=== PATIENT | female | born 1965 | race Caucasian/White ===

== ENCOUNTER 2019-12-20 09:29 | Inpatient (IN) | payer OTHER ==
[~2019-12-20] VITALS: Ht 165.1 cm; Wt 107.0 kg
[2019-12-20] VITALS (34 sets, daily range): BP systolic 80–137; BP diastolic 32–67
--- NOTE | 2019-12-20 09:37 | NUR ---
PATIENT GIVEN 20MG OF ETOMIDATE FROM RSI KIT IV PER VERBAL ORDER FOR INTUBATION OF PATIENT.
--- NOTE | 2019-12-20 09:39 | NUR ---
NURSE REPORT TO ROM ARRINGTON RN, FOR CONTINUATION OF CARE.
--- NOTE | 2019-12-20 09:40 | NUR ---
PT. INTUBATED WITH #7.O ET TUBE USING VIDEO LARYNOSCOPE. ET TUBE PLACEMENT WAS VERIFIED WITH ETCO2 DETECTOR WHICH CHANGED FROM PURPLE TO YELLOW IN COLOR, AUSCULTATION OF THE CHEST, PORTALBE CHEST X RAY, AND CONTINOUS ETCO2 MONITORING. SPO2 100% ON FIO2 OF 100%, HR 70 ETCO2 68. PT. PLACED ON VENTILATOR. VENTILATOR SETTINGS ARE AC 18 TV 500 FIO2 100% PEEP 0.
--- NOTE | 2019-12-20 09:40 | NUR ---
PATIENT INTUBATED WITH 7.0 ET TUBE THAT IS 25CM AT THE LIP. INTUBATED BY SUNG IN RESPIRATORY WITH DR LUX AT BEDSIDE. PATIENT TOLERATED WELL. BEING PLACED ONTO VENTILATOR.
--- NOTE | 2019-12-20 09:41 | NUR ---
VENTILATOR SETTINGS ARE SET AT INTIALLY: RATE 18/MIN TV 500 O2 100% NO PEEP.
--- NOTE | 2019-12-20 09:52 | NUR ---
PROPOFOL INTIATED AT 8MCG/KG PER VERBAL ORDER DR LUX.
[2019-12-20 09:58] LABS: BASO # 0.1 10*3/uL (0.0-0.1); BASO % 0.9 % (0.0-1.0); EOS # 0.7 10*3/uL (0.0-0.4); EOS % 4.2 % (1.0-4.0); HEMATOCRIT 34.1 % (37.0-47.0); LYMPH # 3.2 10*3/uL (1.3-4.4); LYMPH % 20.4 % (27.0-41.0); MEAN CELL VOLUME 97.7 fl (81.0-99.0); MEAN CORPUSCULAR HGB 29.8 pg (27.0-31.0); MEAN CORPUSCULAR HGB CONC 30.5 g/dl (33.0-37.0); MEAN PLATELET VOLUME 10.1 fl (9.6-12.3); MONO # 1.1 10*3/uL (0.1-1.0); NEUT # 10.4 10*3/uL (2.3-7.9); NEUT % 65.9 % (47.0-73.0); NUCLEATED RED BLOOD CELL 0.1 10*3/uL (0.0-0.0); NUCLEATED RED BLOOD CELL 0.6 % (0.0-0.0); PLATELET COUNT AUTOMATED 247 10*3/uL (130-400); RED BLOOD COUNT 3.49 10*6/uL (4.10-5.10); RED CELL DISTRI WIDTH 18.9 % (0-14.5); WHITE BLOOD COUNT 15.8 10*3/uL (4.8-10.8)
--- NOTE | 2019-12-20 10:00 | NUR ---
PROPOFOL HAS BEEN TITRATED TO 5 MCG/KG AT THIS TIME. DR LUX AWARE. BP IS WITHIN NORMAL LIMITS.
--- NOTE | 2019-12-20 10:05 | NUR ---
THIS NURSE ACCOMPANYING PATIENT TO CT SCAN AT THIS TIME. RESPIRATORY ALSO WITH THIS NURSE FOR INTUBATED PATIENT TO BAG.
[2019-12-20 10:11] LABS: BILIRUBIN NEGATIVE (NEGATIVE); BLOOD NEGATIVE (NEGATIVE); CLARITY SL CLOUDY (CLEAR); COLOR YELLOW (YELLOW); GLUCOSE NEGATIVE (NEGATIVE); KETONE NEGATIVE (NEGATIVE); LEUKO ESTERASE NEGATIVE (NEGATIVE); NITRITE NEGATIVE (NEGATIVE); SPECIFIC GRAVITY 1.015 (1.005-1.030); UROBILINOGEN 0.2 E.U./dl (0.2-1.0)
[2019-12-20 10:17] LABS: BACTERIA 3+; EPITHELIAL CELLS 0-2; MUCOUS TRACE
[2019-12-20 10:19] LABS: ALBUMIN 2.5 gm/dl (3.1-4.5); ALKALINE PHOSPHATASE 92 U/L (45-117); BUN 27 mg/dl (7-24); CHLORIDE 101 mmol/L (98-107); CREATININE 2.77 mg/dL (0.55-1.02); POTASSIUM 5.7 mmol/L (3.5-5.1); SGOT/AST 44 IU/L (3-35); SGPT/ALT 31 U/L (12-78); SODIUM 133 mmol/L (136-145); TOTAL PROTEIN 6.9 gm/dL (6.4-8.2); TROPONIN I < 0.015 ng/ml (<0.045)
[2019-12-20 10:38] LABS: ABG BASE EXCESS -4.8 mmol/L (-2.0-2.0); ARTERIAL BLOOD GAS PH 7.227 (7.35-7.45)
--- NOTE | 2019-12-20 10:49 | NUR ---
RESPIRATORY AT BEDSIDE. BLOOD GASES ARE RESULTED. 02 SAT ON VENTILATOR HAS BEEN DECREASED FROM 100% TO 50% BY RESPIRATORY. DR LUX NOTIFIED AND IS OK WITH THIS.
--- NOTE | 2019-12-20 11:33 | NUR ---
FIO2 WAS DECREASED TO 50% AFTER RESULTS OF ABG, AND RN AWARE.' ET TUBE PULLED BACK TO [address] LUX ORDERS. PT. TOLERATED WELL. RN AWARE.
[2019-12-20 13:02] LABS: CREATININE 2.61 mg/dL (0.55-1.02); POTASSIUM 4.8 mmol/L (3.5-5.1)
--- NOTE | 2019-12-20 13:45 | NUR ---
PATIENT TRANSPORTED TO CT SCAN BY THIS NURSE RESPIRATORY AND THERAPY DIRECTOR AT THIS TIME. ICCU HAS BEEN NOTIFIED AND PATIENT WILL GO DIRECTLY FROM CT SCAN TO THE ICCU. PATIENT TRANSPORTED FROM CT TO ICCU AND BEDSIDE REPORT GIVEN TO SHEMAR MEDEL RN AT BEDSIDE. PATIENT TOLERATED WELL.
--- NOTE | 2019-12-20 14:10 | NUR ---
A 54yr old female admitted to ICCU, under the services of BELLA Jordan DO with a diagnosis of Sepsis and Respiratory failure. Chief complaint is collapsed, unresponsive in family's arms at home, intubated upon arrival to ER. Patient arrived via stretcher from ER. Monitor applied. Initial assessment completed. Vital signs taken and recorded. See assessment for past medical history, medications and allergies. Patient and/or family oriented to unit. [facility] visitation policy reviewed. Clothing/patient valuable form completed. Patient is orally intubated, on ventilator, sedated on Propofol. OGT in place. Reese catheter in place. Soft restraints in place to prevent accidental self extubation. Patient does open her eyes spontaneously and movement of her right arm and both legs have been noted. NINI RICHARD L
--- NOTE | 2019-12-20 14:30 | NUR ---
DR SHAFFER HERE UPON PTS ARRIVAL AFTER REVIEWING CT-PT TO BE TRANSFERRED BACK TO CC DR CELINA CLAYTON
[2019-12-20] MEDS ORDERED: PRIMIDONE250 MG PO (15:08)
[2019-12-20] MEDS ORDERED: ALDACTONE25 MG PO (15:09)
[2019-12-20] MEDS ORDERED: SENNA8.6 MG PO (15:09)
[2019-12-20] MEDS ORDERED: VITAMIN D325 MCG PO (15:10)
[2019-12-20] MEDS ORDERED: AMITRIPTYLINE10 MG PO (15:11)
[2019-12-20] MEDS ORDERED: ASPIRIN CHEWABL81 MG PO (15:12)
[2019-12-20] MEDS ORDERED: AMLODIPINE BESY10 MG PO (15:12)
[2019-12-20] MEDS ORDERED: ATORVASTATIN CA80 M1 PO (15:13)
[2019-12-20] MEDS ORDERED: ESCITALOPRAM OX20 MG PO (15:17)
[2019-12-20] MEDS ORDERED: DICYCLOMINE HCL10 MG PO (15:17)
[2019-12-20] MEDS ORDERED: GABAPENTIN100 M2 PO (15:18)
[2019-12-20] MEDS ORDERED: NEURONTIN400 MG PO (15:21)
[2019-12-20] MEDS ORDERED: LOSARTAN POTAS100 M1 PO (15:21)
[2019-12-20] MEDS ORDERED: METOPROLOL SUC100 M2 PO (15:22)
[2019-12-20] MEDS ORDERED: MAGNESIUM OXID400 MG PO (15:22)
[2019-12-20] MEDS ORDERED: METFORMIN HYD1000 MG PO (15:23)
[2019-12-20] MEDS ORDERED: PROTONIX40 MG PO (15:24)
--- NOTE | 2019-12-20 15:30 | NUR ---
MEDICATIONS RECONCILED WITH LISTED/PACKAGED. PHARMACY DOSE PACK
--- NOTE | 2019-12-20 15:44 | NUR ---
DR CARROLL HERE AND NOTIFIED OF CONSULT
[2019-12-20 15:45] LABS: ABG BASE EXCESS -2.9 mmol/L (-2.0-2.0); ARTERIAL BLOOD GAS PH 7.334 (7.35-7.45)
--- NOTE | 2019-12-20 16:10 | NUR ---
ABG RESULTS CALLED TO DR. SHAFFER. NO NEW ORDERS GIVEN.
--- NOTE | 2019-12-20 16:58 | NUR ---
DR PATRICK NOTIFIED OF MAP 45 LEVAPHED STARTED AT 4M/30CC
--- NOTE | 2019-12-20 17:03 | NUR ---
FLUID BOLUS STARTED
--- NOTE | 2019-12-20 18:20 | NUR ---
REPORT TO GAIL AT [facility] PT TO GO TO ROOM 127 4 WEST
--- NOTE | 2019-12-20 18:23 | NUR ---
VERSED FOR ANXIETY PRIOR TO LINE PLACEMENT
--- NOTE | 2019-12-20 18:29 | NUR ---
UNABLE TO REACH SON KATT DESPITE NUMEROUS ATTEMPTS PT TO BE TRANSFERRED TO [facility] I SPOKE WITH SON UPON PTS ADMISSION TO ICCU, AND ADVISED OF POSSIBILITY OF NEEDING TRANSFERRED OUT, AND HE WAS AGREEABLE TO TRANSFER AT THAT TIME
--- NOTE | 2019-12-20 18:31 | NUR ---
LEVAPHED REMAINS AT 4M/30CC WITH MAP >66
--- NOTE | 2019-12-20 18:53 | NUR ---
SON CALLED IN AND IS AWARE OF TRANSFER AND GAVE CONSENTS FOR CENTRAL LINE AND ART LINE
--- NOTE | 2019-12-20 19:20 | NUR ---
CXR DONE. PLACEMENT OF MLC CONFIRMED. [facility] CALLED AND INFORMED.
--- NOTE | 2019-12-20 19:50 | NUR ---
2044 [facility] TO BE HERE IN 35MIN. PT INCONTINENT OF MODERATE AMOUNT MUSHY, BROWN, BM. [facility]INO [facility]ARE DONE AND ADULT DIAPER CHANGED.
--- NOTE | 2019-12-20 20:29 | NUR ---
2024 [facility] HERE FOR TRANSPORT. REPORT GIVEN. ALL BELONGINGS SENT WITH PT( PILLS PACKS, WATCH AND UPPER DENTURES).
--- NOTE | 2019-12-20 20:45 | NUR ---
PT DISCHARGED TO [facility]. [facility] CALLED AND INFORMED THAT PT HAS LEFT. [facility] INTACT. LEVPHED GTT CONT AT 4MICS. NSS INFUSING WELL. DIPRIVAN GTT CONT AT 5MICS. HEP LOCK'S INTACT ELIZABETH,RH AND RA. WRIST RESTRAINTS INTACT BILATERALLY. CIRULATION ADEQUATE. NPO. OGT INTACT AND CLAMPED. MORGAN PATENT AND DRAINING CLEAR MICHAEL URINE. TEDS INTACT BILATERAL LOWER EXTREMITIES. PULSE OX 100% ON 40% FIO2 VIA VENT. ET SECURE TO VENT. PT OPENS EYES TO NAME. CONDITION GUARDED.
== END 2019-12-20 22:51 | disposition short-term general hospital (02) | DRG 720 ==
LOC: ED 09:29 → EDHOLD 11:56 → ICCU 12:53
PROVIDERS: Emergency Medicine; Hospitalist; Internal Medicine Critical Care Medicine; ADMIT Emergency Medicine
PROC: 5A1935Z Respiratory Ventilation, Less than 24 Consecutive Hours (ICD-10-PCS; principal; 2019-12-20)
PROC: 0BH17EZ Insertion of Endotracheal Airway into Trachea, Via Natural or Artificial Opening (ICD-10-PCS; 2019-12-20)
PROC: 05HY33Z Insertion of Infusion Device into Upper Vein, Percutaneous Approach (ICD-10-PCS; 2019-12-20)
PROC: B54NZZA Ultrasonography of Left Upper Extremity Veins, Guidance (ICD-10-PCS; 2019-12-20)
PROC: 03HY32Z Insertion of Monitoring Device into Upper Artery, Percutaneous Approach (ICD-10-PCS; 2019-12-20)
PROC: 4A133B1 Monitoring of Arterial Pressure, Peripheral, Percutaneous Approach (ICD-10-PCS; 2019-12-20)
PROC: 4A133J1 Monitoring of Arterial Pulse, Peripheral, Percutaneous Approach (ICD-10-PCS; 2019-12-20)
DX: A41.9 Sepsis, unspecified organism (principal); J96.01 Acute respiratory failure with hypoxia; N17.0 Acute kidney failure with tubular necrosis; J18.9 Pneumonia, unspecified organism; W19.XXXA Unspecified fall, initial encounter; S09.90XA Unspecified injury of head, initial encounter; D64.9 Anemia, unspecified; E87.5 Hyperkalemia; I25.10 Atherosclerotic heart disease of native coronary artery without angina pectoris; E11.65 Type 2 diabetes mellitus with hyperglycemia; E87.2 Acidosis; J44.0 Chronic obstructive pulmonary disease with (acute) lower respiratory infection; E87.1 Hypo-osmolality and hyponatremia; F17.210 Nicotine dependence, cigarettes, uncomplicated; E66.9 Obesity, unspecified; R65.21 Severe sepsis with septic shock; Z79.4 Long term (current) use of insulin; Z95.1 Presence of aortocoronary bypass graft; Z68.39 Body mass index [BMI] 39.0-39.9, adult